=== PATIENT | female | born 1960 | race Caucasian/White ===

== ENCOUNTER 2017-08-15 09:00 | Day surgery (SDC) | payer OTHER ==
[~2017-08-15 09:00] MED LIST: ATEN25 PO; ATEN50 PO; AZAT50 PO; CAL-MAG PO; CALMAGZIN PO; CHOL10002 PO; CIPR500 PO; DHEA PO; DIAZ2 PO; DOCU100 PO; DOXE10 PO; DOXE50 PO; ERGO400 PO; FILG480I SC; HYDCHL25 PO; HYDR1TAB94 PO; HYDSUL200 PO; LEVFLO500 PO; LEVSOD137 PO; LEVSOD150 PO; LEVSOD175 PO; LOVA20 PO; MAGGLU250 PO; MULVITA PO; MULVITMIND PO; MULVITMINE PO; NORT10 PO; NORT50 PO; NYST100000 PO; ONDA4 PO; OXYACE5T PO; PRED1 PO; PRED10 PO; PRED5 PO; PROC10 PO; RXOXYACE PO; SPIHYD PO; SPIHYD50 PO; SUMA25 PO; TRAZ150T57 PO; TRAZ50 PO; WARF10 PO; WARF7.5 PO; XARELTO1 EACH PO; [UNRECOGNIZED DRUG - CODE] PO
== END 2017-08-15 23:22 | disposition home or self-care (01) ==
LOC: US 09:00
PROC: 0W9G3ZZ Drainage of Peritoneal Cavity, Percutaneous Approach (ICD-10-PCS; principal; 2017-08-15)
DX: R18.8 Other ascites (principal)
CPT/HCPCS: 49083

== ENCOUNTER 2017-08-22 10:33 | Day surgery (SDC) | payer OTHER | END 2017-08-22 22:47 | disposition home or self-care (01) | LOC: US 10:33 | PROC: 0W9G3ZZ Drainage of Peritoneal Cavity, Percutaneous Approach (ICD-10-PCS; principal; 2017-08-22) | DX: R18.8 Other ascites (principal) | CPT/HCPCS: 49083 ==

== ENCOUNTER 2017-08-29 13:57 | Day surgery (SDC) | payer OTHER | END 2017-08-29 22:35 | disposition home or self-care (01) | LOC: US 13:57 | PROC: 0W9G3ZZ Drainage of Peritoneal Cavity, Percutaneous Approach (ICD-10-PCS; principal; 2017-08-29) | DX: R18.8 Other ascites (principal) | CPT/HCPCS: 49083 ==

== ENCOUNTER 2017-10-02 15:46 | Emergency (ER) | payer OTHER ==
[~2017-10-02] VITALS: Ht 167.6 cm; Wt 59.0 kg
[2017-10-02] MEDS ORDERED: BUPR100ER PO (17:50)
[2017-10-02] MEDS ORDERED: LORA1 PO (17:50)
[2017-10-02] MEDS ORDERED: Micro-K10 MEQ (17:50)
[2017-10-02] MEDS ORDERED: OXYC5 (17:50)
[2017-10-02] MEDS ORDERED: YUVAFEM10 MCG VG (17:51)
[2017-10-02] MEDS ORDERED: LORA1SY PO (17:51)
[2017-10-02] MEDS ORDERED: Imitrex100 MG PO (17:51)
[2017-10-02] MEDS ORDERED: TIZANIDINE HCL4 MG PO (17:52)
== END 2017-10-02 18:20 | disposition home or self-care (01) ==
LOC: ER 15:46
DX: R18.8 Other ascites (principal); C19 Malignant neoplasm of rectosigmoid junction; I10 Essential (primary) hypertension
CPT/HCPCS: 99282

== ENCOUNTER 2017-10-06 14:50 | Emergency (ER) | payer OTHER ==
[~2017-10-06] VITALS: Ht 167.6 cm; Wt 54.4 kg
[~2017-10-06 14:50] MED LIST changes: +BUPR100ER PO; +Imitrex100 MG PO; +LORA1 PO; +LORA1SY PO; +Micro-K10 MEQ; +OXYC5; +TIZANIDINE HCL4 MG PO; +YUVAFEM10 MCG VG
[2017-10-06 16:26] LABS: BASOPHILS ABSOLUTE AUTO 0.01 K/mm3 (0.00-0.23); BASOPHILS PERCENT AUTO 0 % (0-2); EOSINOPHILS ABSOLUTE AUTO 0.01 K/mm3 (0.00-0.68); EOSINOPHILS PERCENT AUTO 0 % (0-6); Hematocrit 35.8 % (33.0-51.0); Hemoglobin 11.8 g/dL (11.5-16.0); IMMATURE GRAN ABSOLUTE AUTO 0.01 K/mm3 (0.00-0.10); IMMATURE GRAN PERCENT AUTO 0 % (0-1); LYMPHOCYTES PERCENT AUTO 22 % (21-46); MONOCYTES ABSOLUTE AUTO 0.59 K/mm3 (0.16-1.47); MONOCYTES PERCENT AUTO 11 % (4-13); Mean Corpuscular HGB 28.6 pg (26.0-34.0); NEUTROPHILS ABSOLUTE AUTO 3.77 K/mm3 (1.96-9.15); NEUTROPHILS PERCENT AUTO 67 % (41-73); RDW Coefficient Variation 15.3 % (11.7-14.2); RDW Standard Deviation 48.4 fL (35.1-46.3); Red Blood Cell Count 4.13 M/mm3 (3.80-5.20); White Blood Cell Count 5.59 K/mm3 (4.00-11.30)
[2017-10-06 16:28] LABS: Mean Corpuscular Volume 87 fL (80-100)
[2017-10-06 16:30] LABS: Platelet Count 25 K/mm3 (150-400)
[2017-10-06 16:39] LABS: International Normalized Ratio 1.24
[2017-10-06 17:38] LABS: Alanine Aminotransfer (ALT/SGP 23 U/L (12-78); Albumin, Blood 1.4 g/dL (3.4-5.0); Albumin/Globulin Ratio 0.3 (0.8-1.8); Alk Phos 138 U/L (50-136); Anion Gap 9 mmol/L (6-16); Aspartate Aminotrans (AST/SGOT 31 U/L (12-37); Bilirubin, Total 0.6 mg/dL (0.1-1.0); Blood Urea Nitrogen 12 mg/dL (8-24); Bun/Creatinine Ratio 16.6 (12.0-20.0); CO2, Blood 23 mmol/L (21-32); Calcium, Blood 8.1 mg/dL (8.5-10.1); Chloride, Blood 104 mmol/L (98-108); Creatinine, Blood 0.72 mg/dL (0.40-1.00); Globulin, Blood 4.4 g/dL (2.2-4.0); Glomerular Filtration Rate >60 (60-); Glucose, Blood 96 mg/dL (70-99); Potassium, Blood 4.2 mmol/L (3.5-5.5); Sodium, Blood 136 mmol/L (136-145); Total Protein, Blood 5.8 g/dL (6.4-8.2)
[2017-10-06 18:57] LABS: Source, Urine Catheter
[2017-10-06 19:14] LABS: Appearance, Urine Hazy (Clear); Blood, Urine 5+ (Neg); Color, Urine Amber (P-Yellow); Glucose Qualitative, Urine Neg (Neg); Ketones, Urine Neg (Neg); Leukocyte Esterase, Urine 2+ (Neg); Nitrite, Urine Neg (Neg); Protein, Urine 2+ (Neg); Urobilinogen, Urine 2+ (Normal)
[2017-10-06 19:25] LABS: Bilirubin, Urine 1+ (Neg)
[2017-10-06 19:28] LABS: Bacteria Few /hpf; Mucus Mod (0-Heavy); Red Blood Cells, Urine 50-100 /hpf (0-2); Squamous Epithelial Cells Few /hpf (Few)
== END 2017-10-06 20:32 | disposition home or self-care (01) ==
LOC: ER 14:50
PROVIDERS: Physician Assistant
DX: R18.8 Other ascites (principal); D69.6 Thrombocytopenia, unspecified; R53.1 Weakness; C19 Malignant neoplasm of rectosigmoid junction; I10 Essential (primary) hypertension; Z79.899 Other long term (current) drug therapy; Z87.891 Personal history of nicotine dependence
CPT/HCPCS: 70450; 71046; 80053; 81001; 84443; 85025; 85610; 86850; 86900; 86901; 87086; 93005; 93010; 99284; J1642; J7120

== ENCOUNTER 2017-10-30 14:35 | Day surgery (SDC) | payer OTHER ==
[2017-10-31 10:47] LABS: Performing Lab BLOODWORKS; Test Name HLA TYPING
== END 2017-10-30 15:45 | disposition home or self-care (01) ==
LOC: ATC 14:35
PROVIDERS: Registered Nurse
DX: D69.3 Immune thrombocytopenic purpura (principal); C80.1 Malignant (primary) neoplasm, unspecified; D69.6 Thrombocytopenia, unspecified; R18.8 Other ascites
CPT/HCPCS: 36591; J1642